=== PATIENT | female | born 1985 | race Caucasian/White ===

== ENCOUNTER 2020-02-15 04:22 | Emergency (ER) | payer BC ==
[~2020-02-15] VITALS: Ht 167.6 cm; Wt 92.6 kg
--- NOTE | 2020-02-15 04:45 | NUR ---
assumed care of pt. pt here or N/V for 10-12 hours after binge dinking ETOH yesterday and last nocs. pt reports that she used to be a heavy daily drinker but stopped last month after being in the hospital fo it. pt states hat she is in town on vacation and that she has been drinking "too much". pt denies abd pain, but states that she is having some abd. discomfort from dry heaving. denies diahhrea, no urinary sx. denies . ambulatory. no resp. distress
--- NOTE | 2020-02-15 05:00 | NUR ---
Sarina ESPOSITO at bedside for eval
[2020-02-15] MEDS ORDERED: FAMOTIDINE 20 MG/2 ML ONE (05:07)
[2020-02-15] MEDS ORDERED: ONDANSETRON 2MG/ML, 2ML ONE (05:07)
[2020-02-15] MEDS ORDERED: ONDANSETRON 2MG/ML, 2ML IVPush ONE (05:30)
[2020-02-15] MEDS ORDERED: SODIUM CHLORIDE 0.9% 1,000ML IVBOLUS ONE (05:30)
[2020-02-15] MEDS ORDERED: FAMOTIDINE 20 MG/2 ML IV ONE (05:30)
--- NOTE | 2020-02-15 05:31 | NUR ---
pt has been medicated per order. warm blankets given and lights dimmed for comfort. pt resting
[2020-02-15 05:33] LABS: MEAN CORPUSCULAR HEMOGLOBIN 26.7 pg (27.0-34.8); MEAN CORPUSCULAR HGB CONC 32.5 g/dL (32.4-35.8); MEAN CORPUSCULAR VOLUME 82.2 fL (80-100); MEAN PLATELET VOLUME 8.4 fL (7.4-10.4); PLATELET COUNT 490 x10^3/uL (130-400); RED BLOOD COUNT 4.65 x10^6/uL (3.82-5.3); RED CELL DISTRIBUTION WIDTH 15.1 % (9.6-15.2)
[2020-02-15 05:44] LABS: ALANINE AMINOTRANSFERASE 15 U/L (12-78); ALBUMIN 3.9 g/dL (3.4-5.0); ANION GAP 9 mmol/L (5-15); CALCIUM 8.6 mg/dL (8.5-10.1); CHLORIDE 106 mmol/L (98-107); CREATININE 0.86 mg/dL (0.55-1.02)
[2020-02-15 05:49] LABS: ALKALINE PHOSPHATASE 74 U/L (45-117); BILIRUBIN,TOTAL 0.4 mg/dL (0.2-1.0); TOTAL PROTEIN 8.5 g/dL (6.4-8.2)
[2020-02-15 05:50] LABS: MD YES
[2020-02-15 05:51] LABS: <RBC MORPHOLOGY> NORMAL; LYMPH#(MANUAL) 1.44 x10^3/uL (1-3.4); LYMPHS% (MANUAL) 6 % (22-44); MONOS#(MANUAL) 0.48 x10^3/uL (0.3-2.7); MONOS% (MANUAL) 2 % (2-9); SEG#(MANUAL) 22.08 x10^3/uL (1.8-6.8); SEGS% (MANUAL) 92 % (42-75)
[2020-02-15 05:52] LABS: <PLATELET ESTIMATE> INCREASED; <PLT MORPHOLOGY> NORMAL PLT MORPH
--- NOTE | 2020-02-15 05:54 | NUR ---
no vomiting. IV infusing. pt still c/o nausea
[2020-02-15] MEDS ORDERED: METOCLOPRAMIDE 5 MG/ML, 2ML IVPush ONE (06:00)
[2020-02-15] MEDS ORDERED: METOCLOPRAMIDE 5 MG/ML, 2ML ONE (06:07)
[2020-02-15] MEDS ORDERED: PANTOPRAZOLE 40 MG IV ONE (06:22)
--- NOTE | 2020-02-15 06:29 | NUR ---
pt +N/V. medicated per order. US at bedside
[2020-02-15] MEDS ORDERED: PANTOPRAZOLE 40 MG IV IVPush SCH (06:30)
[2020-02-15] MEDS ORDERED: PANTOPRAZOLE 40 MG IV IVPush ONE (06:30)
--- NOTE | 2020-02-15 06:45 | NUR ---
US still at bedside. report to Tra ROMANO
--- NOTE | 2020-02-15 06:47 | NUR ---
patient report taken. patient has US at bedside, will assess when finished. on monitor, rails up.
[2020-02-15 07:27] VITALS: BP 122/78
== END 2020-02-15 07:34 | disposition home or self-care (01) ==
LOC: ED 05:56
DX: K29.20 Alcoholic gastritis without bleeding (principal); F10.10 Alcohol abuse, uncomplicated; R11.2 Nausea with vomiting, unspecified; R10.13 Epigastric pain; Y90.9 Presence of alcohol in blood, level not specified
CPT/HCPCS: 36415; 76700; 80053; 80307; 83690; 84703; 85025; 96361; 96374; 96375; 99284; C9113; J2405; J2765; J3490; J7030